=== PATIENT | female | born 1995 | race African-American/Black ===

== ENCOUNTER 2020-12-13 12:41 | Emergency (ER) | payer MEDICAID, OTHER ==
[~2020-12-13] VITALS: Ht 170.2 cm; Wt 123.8 kg
[2020-12-13 16:58] VITALS: BP 115/56
[2020-12-13] MEDS ORDERED: METHOCARBAMOL 500 MG TAB PO ONE (17:00)
[2020-12-13] MEDS ORDERED: IBUPROFEN 800 MG TAB PO ONE (17:00)
== END 2020-12-13 17:13 | disposition home or self-care (01) ==
LOC: EDBD 12:41 → ER 12:41
DX: M25.562 Pain in left knee (principal); M54.16 Radiculopathy, lumbar region; E11.9 Type 2 diabetes mellitus without complications; J45.909 Unspecified asthma, uncomplicated; Z90.49 Acquired absence of other specified parts of digestive tract
CPT/HCPCS: 73562